=== PATIENT | female | born 2000 | race Hispanic/Latino ===

== ENCOUNTER 2022-09-13 22:38 | Emergency (ER) | payer SELFPAY ==
[~2022-09-13] VITALS: Ht 160 cm; Wt 99.8 kg
[2022-09-13] MEDS ORDERED: SODIUM CHLORIDE 0.9% 1000ML 1,000 ML IV ONE (23:15)
[2022-09-13 23:26] LABS: BASOPHILS # (AUTO) 0.1 (0.0-0.1); BASOPHILS % 0.4 % (0.0-1.0); EOSINOPHILS # (AUTO) 0.1 (0.0-0.4); EOSINOPHILS % 0.5 % (0.0-6.0); HEMATOCRIT 39.6 % (34.2-44.1); HEMOGLOBIN 12.7 g/dL (12.0-16.0); LYMPHOCYTES # (AUTO) 2.3 (1.0-3.2); LYMPHOCYTES % 19.6 % (18.0-39.1); MEAN CORPUSCULAR HEMOGLOBIN 26.7 pg (28-32); MEAN CORPUSCULAR HGB CONC 32.1 g/dL (31-35); MEAN CORPUSCULAR VOLUME 83.4 fL (81-99); MONOCYTES # (AUTO) 0.7 (0.2-0.8); MONOCYTES % 6.3 % (4.4-11.3); NEUTROPHILS # (AUTO) 8.5 (2.1-6.9); PLATELET COUNT 286 x10e3/uL (140-360); RED BLOOD COUNT 4.75 x10e6/uL (3.6-5.1); RED CELL DISTRIBUTION WIDTH 14.3 % (11.7-14.4)
[2022-09-13 23:45] LABS: ALBUMIN 4.3 g/dL (3.5-5.0); ANION GAP 15.8 mmol/L (8-16); CALCIUM 9.6 mg/dL (8.4-10.2); CREATININE, SERUM 0.86 mg/dL (0.57-1.11); POTASSIUM 3.8 mmol/L (3.5-5.1)
[2022-09-14 01:09] LABS: CLARITY,URINE CLOUDY (CLEAR); COLOR,URINE RED (YELLOW); KETONES,URINE NEGATIVE (NEGATIVE); LEUKOCYTE ESTERASE ,URINE NEGATIVE (NEGATIVE); NITRITE,URINE NEGATIVE (NEGATIVE); PROTEIN,URINE DIPSTICK 2+ (NEGATIVE); URINE UROBILINOGEN 0.2 mg/dL (0.2 - 1)
[2022-09-14 01:12] LABS: BACTERIA,URINE MODERATE /HPF; EPITHELIAL CELLS,URINE FEW /LPF; RBC,URINE >50 /HPF (0-5); RENAL EPITHELIAL CELLS,URINE FEW
[2022-09-14] MEDS ORDERED: CEPHALEXIN500 MG PO (01:33)
[2022-09-14 01:49] VITALS: BP 113/76
== END 2022-09-14 01:45 | disposition home or self-care (01) ==
LOC: ER 23:03
DX: O20.9 Hemorrhage in early pregnancy, unspecified (principal); R82.71 Bacteriuria
CPT/HCPCS: 36415; 76801; 76817; 80053; 81001; 84702; 85025; 86900; 99283; J7030

== ENCOUNTER 2024-01-16 01:03 | Emergency (ER) | payer SELFPAY ==
[~2024-01-16] VITALS: Ht 160 cm; Wt 108.9 kg
[~2024-01-16 01:03] MED LIST: CEPHALEXIN500 MG PO
[2024-01-16 01:05] VITALS: PULSE 92; RESP 17; TEMP 98.2
[2024-01-16 03:10] VITALS: BP 128/68; PULSE 85; RESP 16; TEMP 98.5; O2SAT 99
== END 2024-01-16 03:06 | disposition home or self-care (01) ==
LOC: ER 01:10
DX: M79.18 Myalgia, other site (principal); S39.013A Strain of muscle, fascia and tendon of pelvis, initial encounter; T50.995A Adverse effect of other drugs, medicaments and biological substances, initial encounter
CPT/HCPCS: 72192; 81025; 99283